=== PATIENT | male | born 1940 | race Caucasian/White ===

== ENCOUNTER 2018-05-01 20:20 | Observation (INO) | payer OTHER, MEDICARE ==
[2018-05-01] MEDS ORDERED: ENOXAPARIN 100 MG/ML SYR SQ ONE (20:43)
[2018-05-01] MEDS ORDERED: HYDROCODONE/APAP 7.5/325 MG TAB ONE (20:50)
[2018-05-01 20:58] LABS: Absolute Monocytes 0.9 K/uL (0.1-1.3); Eosinophils % 6.3 % (0-4.4); Hematocrit 44.3 % (39.6-49.0); Lymphocytes % 26.4 % (15.3-44.8); MCH 30.3 pg (27.0-35.0); MPV 8.3 fL (7.6-11.3); Monocytes % 12.2 % (3.3-12.3); RBC Red Blood Cell Count 4.93 M/uL (4.33-5.43)
[2018-05-01 21:01] LABS: Protime INR 0.96
--- NOTE | 2018-05-01 21:15 | RAD REPORT ---
EXAM DESCRIPTION: RAD - Chest Single View - 05/01/2018 9:08 pm CLINICAL HISTORY: DYSPNEA Chest pain. COMPARISON: No comparisons FINDINGS: Portable technique limits examination quality. The lungs are grossly clear. The heart is normal in size. No displaced fractures.Bilateral shoulder a rthroplasties. IMPRESSION: No acute intrathoracic process suspected.
[2018-05-01 21:22] LABS: ALT/SGPT 31 U/L (12-78); AST/SGOT 30 U/L (15-37); Albumin 3.5 g/dL (3.4-5.0); Alkaline Phosphatase 81 U/L (45-117); BUN Blood Urea Nitrogen 18 mg/dL (7-18); Bicarbonate 28 mmol/L (21-32); Bilirubin Direct < 0.1 mg/dL (0-0.2); Bilirubin Total 0.3 mg/dL (0.2-1.0); Glucose Level 163 mg/dL (74-106); Magnesium 2.4 mg/dL (1.8-2.4); NT PRO-BNP 122 pg/mL (<450); Potassium 3.8 mmol/L (3.5-5.1); Sodium Level 141 mmol/L (136-145)
--- NOTE | 2018-05-01 22:15 | EDPHYS ---
Physician Documentation [facility] Name: Nemesio Babb III Age: 77 yrs Sex: Male : 1940 Arrival Date: 05/01/2018 Time: 20:23 Bed 2 Private MD: ED Physician Dre Agee HPI: 05/01 21:52 This 77 yrs old Male presents to ER via EMS with complaints of Dizziness/ jr8 Shortness Of Breath. 21:52 The patient has shortness of breath at rest. Onset: The symptoms/episode began/occurred jr8 acutely, today. Duration: The symptoms are continuous. The patient's shortness of breath has no apparent modifying factors. Associated signs and symptoms: Pertinent positives: dizziness. Severity of symptoms: At their worst the symptoms were moderate in the emergency department the symptoms have improved. The patient has not experienced similar symptoms in the past. The patient has not recently seen a physician. Patient stated that he started to become acutely short of breath and dizzy. EMS was called and found patient to be in atrial fibrillation with RVR. Cardizem was given and he was brought to ED at that time. Patient currently in atrial fib without RVR. Feels better but still short of breath. Denies history of atrial fibrillation . Historical: - Allergies: 20:30 tramadol; rv - Home Meds: 20:38 metoprolol tartrate 25 mg Oral tab 1 tab 2 times per day [Active]; Plavix 75 mg Oral rv tab 1 tab once daily [Active]; aspirin 325 mg Oral tab 1 tab once daily [Active]; 20:39 Cymbalta 60 mg oral cpDR 1 cap once daily [Active]; rv - PMHx: 20:30 Myocardial infarction; rv - PSHx: 20:30 Angioplasty; rv 20:38 back surgery; shoulder surgery; Appendectomy; left hip surgery; rv - Immunization history:: Adult Immunizations up to date. - Social history:: Smoking status: unknown. - Ebola Screening: : Patient negative for fever greater than or equal to 101.5 degrees Fahrenheit, and additional compatible Ebola Virus Disease symptoms Patient denies exposure to infectious person Patient denies travel to an Ebola-affected area in the 21 days before illness onset. ROS: 21:52 Eyes: Negative for injury, pain, redness, and discharge, ENT: Negative for injury, jr8 pain, and discharge, Neck: Negative for injury, pain, and swelling, Cardiovascular: Negative for chest pain, palpitations, and edema, Abdomen/GI: Negative for abdominal pain, nausea, vomiting, diarrhea, and constipation, Back: Negative for injury and pain, MS/Extremity: Negative for injury and deformity, Skin: Negative for injury, rash, and discoloration. 21:52 Respiratory: Positive for shortness of breath, Negative for cough, dyspnea on exertion, sputum production, wheezing. 21:52 Neuro: Positive for dizziness, Negative for altered mental status, gait disturbance, headache, hearing loss, loss of consciousness, numbness, seizure activity, speech changes, syncope, near syncope, tingling, tinnitus, tremor, visual changes, weakness. Exam: 21:54 Eyes: Pupils equal round and reactive to light, extra-ocular motions intact. Lids and jr8 lashes normal. Conjunctiva and sclera are non-icteric and not injected. Cornea within normal limits. Periorbital areas with no swelling, redness, or edema. ENT: Nares patent. No nasal discharge, no septal abnormalities noted. Tympanic membranes are normal and external auditory canals are clear. Oropharynx with no redness, swelling, or masses, exudates, or evidence of obstruction, uvula midline. Mucous membranes moist. Neck: Trachea midline, no thyromegaly or masses palpated, and no cervical lymphadenopathy. Supple, full range of motion without nuchal rigidity, or vertebral point tenderness. No Meningismus. Respiratory: Lungs have equal breath sounds bilaterally, clear to auscultation and percussion. No rales, rhonchi or wheezes noted. No increased work of breathing, no retractions or nasal flaring. Abdomen/GI: Soft, non-tender, with normal bowel sounds. No distension or tympany. No guarding or rebound. No evidence of tenderness throughout. Back: No spinal tenderness. No costovertebral tenderness. Full range of motion. Skin: Warm, dry with normal turgor. Normal color with no rashes, no lesions, and no evidence of cellulitis. MS/ Extremity: Pulses equal, no cyanosis. Neurovascular intact. Full, normal range of motion. Neuro: Awake and alert, GCS 15, oriented to person, place, time, and situation. Cranial nerves II-XII grossly intact. Motor strength 5/5 in all extremities. Sensory grossly intact. Cerebellar exam normal. Normal gait. 21:54 Cardiovascular: Rate: normal, Rhythm: irregularly irregular, Pulses: Pulses are 2+ in right radial artery and left radial artery. Heart sounds: normal, normal S1and S2, no S3 or S4, no murmur, no rub, no gallop, Edema: is not appreciated, JVD: is not appreciated. Vital Signs: 20:31 BP 105 / 71; Pulse 78; Resp 16; Pulse Ox 97% on 2 lpm NC; rv 20:34 Weight 104.33 kg; Height 6 ft. 0 in. (182.88 cm); rv 20:52 Temp 97.7(O); lp1 21:15 BP 109 / 79; Pulse 74; Resp 14; Pulse Ox 95% on 2 lpm NC; lp1 22:15 BP 113 / 88; Pulse 66; Resp 20; Pulse Ox 95% on 2 lpm NC; lp1 20:34 Body Mass Index 31.19 (104.33 kg, 182.88 cm) rv MDM: 20:31 Patient medically screened. jr8 22:13 Data reviewed: vital signs, nurses notes, lab test result(s), EKG, radiologic studies, jr8 plain films, and as a result, I will admit patient. Data interpreted: Pulse oximetry: on room air is 95 %. Interpretation: normal. Counseling: I had a detailed discussion with the patient and/or guardian regarding: the historical points, exam findings, and any diagnostic results supporting the discharge/admit diagnosis, lab results, radiology results, the need for further work-up and treatment in the hospital. ED course: Consulted Dr. Ch with [facility]. Agrees patient needs to be observed overnight. Recommend that he stay with us for observation period and that he can f/u with them this week. Patient is ok with this. 05/01 20:32 Order name: Basic Metabolic Panel; Complete Time: 21:23 [facility] 05/01 20:32 Order name: CBC with Diff; Complete Time: 21:04 05/01 20:32 Order name: LFT's; Complete Time: 21:23 8 05/01 20:32 Order name: Magnesium; Complete Time: 21:23 [facility] 05/01 20:32 Order name: NT PRO-BNP; Complete Time: 21:23 [facility] 05/01 20:32 Order name: PT-INR; Complete Time: 21:04 05/01 20:32 Order name: Troponin (emerg Dept Use Only); Complete Time: 21:20 05/01 20:32 Order name: XRAY Chest (1 view); Complete Time: 21:20 05/01 20:32 Order name: EKG; Complete Time: 20:32 05/01 20:32 Order name: TSH; Complete Time: 21:23 05/01 20:32 Order name: T4 Free; Complete Time: 21:23 05/01 20:32 Order name: Cardiac monitoring; Complete Time: 20:33 05/01 20:32 Order name: EKG - Nurse/Tech; Complete Time: 20:33 05/01 20:32 Order name: IV Saline Lock; Complete Time: 20:33 05/01 20:32 Order name: Labs collected and sent; Complete Time: 20:33 05/01 20:32 Order name: O2 Per Protocol; Complete Time: 20:34 05/01 20:32 Order name: O2 Sat Monitoring; Complete Time: 20:34 05/01 21:30 Order name: EKG; Complete Time: 21:30 mt 05/01 21:30 Order name: EKG - Nurse/Tech; Complete Time: 21:30 mt Administered Medications: 20:46 Not Given (Physician Discretion): Lovenox 1 mg/kg Sub-Q once 20:50 Drug: Reynolds (7.5 mg-325 mg) 1 tabs Route: PO; rv 21:31 Follow up: Response: No adverse reaction; Pain is decreased bp 21:30 Drug: Lovenox 1 mg/kg Route: Sub-Q; Site: right lower abdomen; bp 22:35 Follow up: Response: No adverse reaction lp1 Disposition: 05/02 08:53 Co-signature as Attending Physician, Dre Agee MD I agree with the assessment and coni plan of care. Disposition: 05/01/18 22:15 Hospitalization ordered by Nasrin Mariano for Observation. Preliminary diagnosis is Paroxysmal atrial fibrillation - New Onset. - Bed requested for Telemetry/MedSurg (observation). - Status is Observation. lp1 - Condition is Stable. - Problem is new. - Symptoms have improved. UTI on Admission? No Signatures: Dispatcher [employer] EDMS Maggy Dominguez RN RN Dre Ricketts MD MD cha Pena, Laura RN RN lp1 Winston Funes PA PA jr8 Dawna Dumont mt, Brian, RN RN Ana Rosa Castrejon Ronaldo RN RN rv Corrections: (The following items were deleted from the chart) 05/01 21:54 21:52 Patient stated that he started to become acutely short of breath and dizzy. EMS jr8 was called and found patient to be in atrial fibrillation with RVR. Cardizem was given and he was brought to ED at that time. Patient currently in atrial fib without RVR. Feels better but still short of breath . jr8 22:27 22:15 Hospitalization Ordered by Nasrin Mariano MD for Observation. Preliminary eb diagnosis is Paroxysmal atrial fibrillation - New Onset. Bed requested for Telemetry/MedSurg (observation). Status is Observation. Condition is Stable. Problem is new. Symptoms have improved. UTI on Admission? No. jr8 22:59 22:27 05/01/2018 22:15 Hospitalization Ordered by Nasrin Mariano MD for Observation. kl Preliminary diagnosis is Paroxysmal atrial fibrillation - New Onset. Bed requested for Telemetry/MedSurg (observation). Status is Observation. Condition is Stable. Problem is new. Symptoms have improved. UTI on Admission? No. eb 23:12 22:59 05/01/2018 22:15 Hospitalization Ordered by Nasrin Mariano MD for Observation. lp1 Preliminary diagnosis is Paroxysmal atrial fibrillation - New Onset. Bed requested for Telemetry/MedSurg (observation). Status is Observation. Condition is Stable. Problem is new. Symptoms have improved. UTI on Admission? No. kl
--- NOTE | 2018-05-01 22:15 | ER ---
Nurse's Notes [facility] Name: Nemesio Babb III Age: 77 yrs Sex: Male : 1940 Arrival Date: 05/01/2018 Time: 20:23 Bed 2 Private MD: Diagnosis: Paroxysmal atrial fibrillation-New Onset Presentation: 05/01 20:26 Presenting complaint: EMS states: "while sitting and watching TV started having chest rv pains and SOB. took 324mg of ASA and Nitros before we came.". Transition of care: patient was not received from another setting of care. Onset of symptoms was May 01, 2018 at 19:30. Risk Assessment: Do you want to hurt yourself or someone else? Patient reports no desire to harm self or others. Initial Sepsis Screen: Does the patient meet any 2 criteria? No. Patient's initial sepsis screen is negative. Does the patient have a suspected source of infection? No. Patient's initial sepsis screen is negative. Care prior to arrival: None. 20:26 Method Of Arrival: EMS: [facility] rv 20:26 Acuity: YAJAIRA 3 rv Historical: - Allergies: 20:30 tramadol; rv - Home Meds: 20:38 metoprolol tartrate 25 mg Oral tab 1 tab 2 times per day [Active]; Plavix 75 mg Oral rv tab 1 tab once daily [Active]; aspirin 325 mg Oral tab 1 tab once daily [Active]; 20:39 Cymbalta 60 mg oral cpDR 1 cap once daily [Active]; rv - PMHx: 20:30 Myocardial infarction; rv - PSHx: 20:30 Angioplasty; rv 20:38 back surgery; shoulder surgery; Appendectomy; left hip surgery; rv - Immunization history:: Adult Immunizations up to date. - Social history:: Smoking status: unknown. - Ebola Screening: : Patient negative for fever greater than or equal to 101.5 degrees Fahrenheit, and additional compatible Ebola Virus Disease symptoms Patient denies exposure to infectious person Patient denies travel to an Ebola-affected area in the 21 days before illness onset. Screenin:42 Abuse screen: Denies threats or abuse. Denies injuries from another. Nutritional lp1 screening: No deficits noted. Tuberculosis screening: No symptoms or risk factors identified. Fall Risk None identified. Assessment: 20:40 General: Appears uncomfortable, Behavior is appropriate for age. Pain: Complains of lp1 pain in chest and left thumb Pain does not radiate. Pain currently is 8 out of 10 on a pain scale. Quality of pain is described as pressure, sharp, Pain began suddenly. Neuro: Level of Consciousness is awake, alert, obeys commands, Oriented to person, place, time, situation. Cardiovascular: Capillary refill < 3 seconds in bilateral fingers toes Patient's skin is warm and dry. Rhythm is sinus rhythm Chest pain is described as severe, quality is pressure, is located in right anterior chest wall. Respiratory: Reports shortness of breath at rest Airway is patent Trachea midline Respiratory effort is even, Respiratory pattern is regular, Breath sounds are clear bilaterally. the patient has moderate shortness of breath. GI: No signs and/or symptoms were reported involving the gastrointestinal system. : No signs and/or symptoms were reported regarding the genitourinary system. EENT: No signs and/or symptoms were reported regarding the EENT system. Derm: Skin is pink, warm \\T\\ dry. Musculoskeletal: Circulation, motion, and sensation intact. 21:14 Reassessment: Patient appears in no apparent distress at this time. Patient is alert, lp1 oriented x 3, equal unlabored respirations, skin warm/dry/pink. Family at bedside. 22:15 Reassessment: Patient appears in no apparent distress at this time. Patient is alert, lp1 oriented x 3, equal unlabored respirations, skin warm/dry/pink. Patient aware of pending admission, family at bedside Patient denies pain at this time. Patient states feeling better. 22:37 Reassessment: Dr. Downey at bedside. lp1 Vital Signs: 20:31 BP 105 / 71; Pulse 78; Resp 16; Pulse Ox 97% on 2 lpm NC; rv 20:34 Weight 104.33 kg; Height 6 ft. 0 in. (182.88 cm); rv 20:52 Temp 97.7(O); lp1 21:15 BP 109 / 79; Pulse 74; Resp 14; Pulse Ox 95% on 2 lpm NC; lp1 22:15 BP 113 / 88; Pulse 66; Resp 20; Pulse Ox 95% on 2 lpm NC; lp1 20:34 Body Mass Index 31.19 (104.33 kg, 182.88 cm) rv ED Course: 20:20 No provider procedures requiring assistance completed. Maintain EMS IV. Dressing lp1 intact. Good blood return noted. Site clean \\T\\ dry. Gauge \\T\\ site: 18g to R AC. 20:23 Patient arrived in ED. bp 20:25 EKG done, by ED staff, reviewed by Dre Agee MD. mt 20:28 Triage completed. rv 20:31 Winston Funes PA is PHCP. jr8 20:31 Dre Agee MD is Attending Physician. jr8 20:39 Porsche Tee, CRISTAL is Primary Nurse. lp1 20:42 Patient has correct armband on for positive identification. Placed in gown. Bed in low lp1 position. Call light in reach. educational coordinator on. Pulse ox on. NIBP on. 20:42 Arm band placed on left wrist. lp1 20:43 Patient maintains SpO2 saturation greater than 95% on room air. lp1 21:08 XRAY Chest (1 view) In Process Unspecified. EDMS 22:14 Nasrin Mariano MD is Hospitalizing Provider. jr8 22:34 Patient admitted, IV remains in place. lp1 Administered Medications: 20:46 Not Given (Physician Discretion): Lovenox 1 mg/kg Sub-Q once jr8 20:50 Drug: Roy (7.5 mg-325 mg) 1 tabs Route: PO; rv 21:31 Follow up: Response: No adverse reaction; Pain is decreased bp 21:30 Drug: Lovenox 1 mg/kg Route: Sub-Q; Site: right lower abdomen; bp 22:35 Follow up: Response: No adverse reaction lp1 Outcome: 22:15 Decision to Hospitalize by Provider. jr8 22:34 Condition: stable lp1 22:34 Instructed on the need for admit. 23:09 Admitted to Tele via wheelchair, room , with oxygen, with chart. lp1 23:12 Admitted to Tele via wheelchair, room 427, with chart, Report called to Sarai Patiño RN 23:12 Patient left the ED. lp1 Signatures: Dispatcher [employer] EDMS Porsche Tee, RN RN [email or web address] Winston Funes PA PA [address] Dany Church RN RN Ray Tan RN RN rv Corrections: (The following items were deleted from the chart) 22:34 20:20 Maintain EMS IV. Dressing intact. Good blood return noted. Site clean \\T\\ dry. lp1 Gauge \\T\\ site: 18g to R AC. Patient admitted, IV remains in place. lp1
--- NOTE | 2018-05-01 22:59 | P.HP ---
Certification for Inpatient Patient admitted to: Observation With expected LOS: <2 Midnights Practitioner: I am a practitioner with admitting privileges, knowledge of patient current condition, hospital course, and medical plan of care. Services: Services provided to patient in accordance with Admission requirements found in Title 42 Section 412.3 of the Code of Federal Regulations Patient History Date of Service: 05/01/18 Reason for admission: new onset A.Fib History of Present Illness: Mr Babb is a 77 years old male with history of HTN, CAD, who was watching tv this afternoon when suddenly start feeling lightheadedness, dizziness and SOB. He got concern because his previous [place] presented with similar symptoms. He took his blood pressure and it was 170's/120's. He noticed also that his HR was elevated, about 120-130's. He took nitro spry but did not improved his symptoms. He called then 911. EMS found the patient on A.Fib, subsequently they gave him Cardizem and transferred the patient to the hospital. In ED EKG was still on A.Fib at 97 bpm. Finally the patient converted back to SR while was still in ER. It is important to mention that the patient did not take Metoprolol yesterday (2 doses). 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 moist/pink, EOMI, Sclerae nonicteric Neck: Supple, 2+ carotid pulse no bruit, No LAD, Without JVD or thyroid abnormality Respiratory: Clear to auscultation bilaterally, Normal air movement Cardiovascular: Regular rate/rhythm, Normal S1 S2 Gastrointestinal: Normal bowel sounds, No tenderness Musculoskeletal: No tenderness Integumentary: No rashes Neurological: Normal speech, Normal strength at 5/5 x4 extr, Normal tone, Normal affect Lymphatics: No axilla or inguinal lymphadenopathy - Studies Laboratory Data (last 24 hrs) 05/01/18 20:20: PT 11.3, INR 0.96 05/01/18 20:20: WBC 7.4, Hgb 14.9, Hct 44.3, Plt Count 176 05/01/18 20:20: Sodium 141, Potassium 3.8, BUN 18, Creatinine 0.90, Glucose 163 H, Magnesium 2.4, Total Bilirubin 0.3, AST 30, ALT 31, Alkaline Phosphatase 81 Assessment and Plan - Problems (Diagnosis) (1) HTN (hypertension) Current Visit: Yes Status: Acute Qualifiers: Hypertension type: essential hypertension Qualified Code(s): I10 - Essential (primary) hypertension (2) New onset atrial fibrillation Current Visit: Yes Status: Acute (3) CAD (coronary artery disease) Current Visit: Yes Status: Acute Qualifiers: Coronary Disease-Associated Artery/Lesion type: [place] artery [place] vs. transplanted heart: [place] heart Associated angina: without angina Qualified Code(s): I25.10 - Atherosclerotic heart disease of [place] coronary artery without angina pectoris (4) Hypothyroidism Current Visit: Yes Status: Acute Qualifiers: Hypothyroidism type: unspecified Qualified Code(s): E03.9 - Hypothyroidism , unspecified - Plan The patient will be admitted to the hospital due to new onset atrial fibrillation. Currently on normal SR, after receive IV Cardizem in the ambulance on the way to ED. Initial trop I is negative. Will resume Metoprolol, order continue cardiac monitoring, start Eliquis, serial trop I and EKG, ECHO and Cardiology team evaluation. - Advance Directives Does patient have a Living Will: Yes Does patient have a Durable POA for Healthcare: Yes - Code Status/Comfort Care Code Status Assessed: Yes Code Status: Full Code
[2018-05-01] MEDS ORDERED: ONDANSETRON 4 MG/2 ML VIAL IV PRN (23:25)
[2018-05-01] MEDS ORDERED: ACETAMINOPHEN 500 MG TAB PO PRN (23:25)
[2018-05-01] MEDS ORDERED: POTASSIUM 25 MEQ EFFERV TAB PO ONE (23:59)
[2018-05-02] MEDS ORDERED: ESZOPICLONE 1 MG TAB PO PRN (01:22)
[2018-05-02 02:04] VITALS: BMI 4491.3
[2018-05-02 02:30] LABS: Urine Appearance CLOUDY; Urine Bilirubin NEGATIVE (NEG); Urine Blood NEGATIVE (NEG); Urine Color YELLOW; Urine Glucose NEGATIVE (NEG); Urine Protein NEGATIVE (NEG); Urine Urobilinogen 0.2 mg/dL (0.2-1.0)
[2018-05-02 03:01] LABS: Urine Microscopic Reflex ORDER UMIC
[2018-05-02 03:21] LABS: Urine Bacteria <20 /HPF (NONE SEEN); Urine RBC NONE SEEN /HPF (NONE SEEN)
[2018-05-02 03:22] LABS: Urine Culture Reflex Order NOT NEEDED; Urine Sperm PRESENT (NONE SEEN)
[2018-05-02 04:53] LABS: BUN Blood Urea Nitrogen 19 mg/dL (7-18); Bicarbonate 30 mmol/L (21-32); Glucose Level 101 mg/dL (74-106); Potassium 4.4 mmol/L (3.5-5.1); Sodium Level 142 mmol/L (136-145)
[2018-05-02 08:14] VITALS: BP 149/86; TEMP 97
[2018-05-02] MEDS ORDERED: METOPROLOL TAR 25 MG TAB PO SCH (09:00)
[2018-05-02] MEDS ORDERED: ASPIRIN 325 MG TAB PO SCH (09:00)
[2018-05-02] MEDS ORDERED: APIXABAN 5 MG TABLET PO SCH (09:00)
[2018-05-02] MEDS ORDERED: CLOPIDOGREL 75 MG TABLET PO SCH (09:00)
--- NOTE | 2018-05-02 09:00 | EKG ---
Test Date: 2018-05-01 Test Time: 21:26:33 [place] [employer] Professor: MARIO MEASUREMENT RESULTS: Intervals: Rate: 72 NE: 194 QRSD: 90 QT: 372 QTc: 407 [place]: P: 58 NE: 194 QRS: 3 T: 50 INTERPRETIVE STATEMENTS: Sinus rhythm with occasional premature ventricular complexes Otherwise normal ECG Compared to ECG 05/01/2018 20:21:23 Ventricular premature complex(es) now present Atrial fibrillation no longer present Electronically Signed On 05-02-18 09:00:19 CDT by Chuy Munguia
--- NOTE | 2018-05-02 09:00 | EKG ---
Test Date: 2018-05-01 Test Time: 20:21:23 Speech Language Assistant: MARIO MEASUREMENT RESULTS: Intervals: Rate: 97 [place]: QRSD: 102 QT: 350 QTc: 444 [place]: P: [place]: QRS: 7 T: 49 INTERPRETIVE STATEMENTS: Atrial fibrillation Abnormal ECG No previous ECG available for comparison Electronically Signed On 05-02-18 09:00:25 CDT by Chuy Munguia
[2018-05-02 10:44] VITALS: O2SAT 96
--- NOTE | 2018-05-02 11:56 | ECHO ---
HEIGHT: 0 ft 6 in WEIGHT: 230 lb 0 oz DATE OF STUDY: 05/02/[address]: Nasrin Downey MD 2-DIMENSIONAL: YES M.MODE: YES DOPPLER: YES COLOR FLOW: YES TDS: PORTABLE: DEFINITY: BUBBLE STUDY: DIAGNOSIS: ATRIAL FIBRILLATION CARDIAC HISTORY: CATHERIZATION: NO SURGERY: NO PROSTHETIC VALVE: NO PACEMAKER: NO MEASUREMENTS (cm) DIASTOLIC (NORMALS) SYSTOLIC (NORMALS) IVSd 1.4 (0.6-1.2) LA Diam 4.4 (1.9-4.0) LVEF 58% LVIDd 4.2 (3.5-5.7) LVIDs 2.9 (2.0-3.5) %FS 30% LVPWd 1.3 (0.6-1.2) Ao Diam 3.3 (2.0-3.7) 2 DIMENSIONAL ASSESSMENT: RIGHT ATRIUM: NORMAL LEFT ATRIUM: DILATED RIGHT VENTRICLE: NORMAL LEFT VENTRICLE: LEFT VENTRICULAR HYPERTROPHY TRICUSPID VALVE: NORMAL MITRAL VALVE: NORMAL PULMONIC VALVE: NORMAL AORTIC VALVE: NORMAL PERICARDIAL EFFUSION: NONE AORTIC ROOT: NORMAL LEFT VENTRICULAR WALL MOTION: NORMAL DOPPLER/COLOR FLOW: MILD AORTIC REGURGITATION. IMPAIRED LEFT VENTRICULAR RELAXATION. COMMENTS: NORMAL LEFT VENTRICULAR EJECTION FRACTION. DILATED LEFT ATRIUM. MILD AORTIC REGURGITATION. IMPAIRED LEFT VENTRICULAR RELAXATION. TECHNOLOGIST: RM CISSE
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
--- NOTE | 2018-05-02 14:42 | P.DS ---
Admission Date: 05/01/18 Discharge Date: 05/02/18 Disposition: ROUTINE DISCHARGE Discharge Condition: FAIR Reason for Admission: new onset A.Fib Consultations: Cardiology Dr. Munguia - Problems (1) CAD (coronary artery disease) Status: Acute Qualifiers: Coronary Disease-Associated Artery/Lesion type: [place] artery [place] vs. transplanted heart: [place] heart Associated angina: without angina Qualified Code(s): I25.10 - Atherosclerotic heart disease of [place] coronary artery without angina pectoris (2) HTN (hypertension) Status: Acute Qualifiers: Hypertension type: essential hypertension Qualified Code(s): I10 - Essential (primary) hypertension (3) Hypothyroidism Status: Acute Qualifiers: Hypothyroidism type: unspecified Qualified Code(s): E03.9 - Hypothyroidism , unspecified (4) New onset atrial fibrillation Status: Acute Brief History of Present Illness: From H&P Mr Babb is a 77 years old male with history of HTN, CAD, who was watching tv this afternoon when suddenly start feeling lightheadedness, dizziness and SOB. He got concern because his previous CO presented with similar symptoms. He took his blood pressure and it was 170's/120's. He noticed also that his HR was elevated, about 120-130's. He took nitro spry but did not improved his symptoms. He called then 911. EMS found the patient on A.Fib, subsequently they gave him Cardizem and transferred the patient to the hospital. In ED EKG was still on A.Fib at 97 bpm. Finally the patient converted back to SR while was still in ER. It is important to mention that the patient did not take Metoprolol yesterday (2 doses). Hospital Course: Patient is a 77-year-old male who comes into the hospital with atrial fibrillation with RVR he had forgotten to take his beta-rosa as he was away on a trip. Patient was controlled with metoprolol his rate improved. Echocardiogram was done which showed EF of 58%. He was seen by cardiology Dr. Munguia. Patient was started on anticoagulation with within your oral anticoagulants. He tolerated the medication well. Patient was taken off of his aspirin and Plavix. Patient was recommended to follow up with his primary music engineer in [place]. Patient was incidentally found to have elevated TSH. Patient was not initially started on thyroid medication due to atrial fibrillation. Once patient's heart rate is better controlled he will need to be started on Synthroid by his primary care physician at a low dose in order not exacerbate further atrial fibrillation with RVR. Patient will need repeat TSH level in 6 to 8 weeks. Patient denied any chest pain or shortness of breath he was then cleared for discharge from cardiology standpoint and was sent home in a stable condition Vital Signs/Physical Exam: Temp Pulse Resp BP Pulse Ox 97.0 F 70 18 149/86 H 96 05/02/18 08:00 05/02/18 08:45 05/02/18 08:00 05/02/18 08:45 05/02/18 08:00 General: Alert, In no apparent distress, Oriented x3, Obese HEENT: Atraumatic, PERRLA, EOMI Neck: Supple, JVD not distended Respiratory: Clear to auscultation bilaterally, Normal air movement Cardiovascular: No edema, Normal pulses, Regular rate/rhythm, Normal S1 S2 Gastrointestinal: Normal bowel sounds, Soft and benign, Non-distended, No tenderness Musculoskeletal: No clubbing, No tenderness Integumentary: No rashes, No erythema Neurological: Normal speech, Normal strength at 5/5 x4 extr, Normal tone, Normal affect Laboratory Data at Discharge: WBC 7.4 K/uL (4.3-10.9) 05/01/18 20:20 Hgb 14.9 g/dL (13.6-17.9) 05/01/18 20:20 Hct 44.3 % (39.6-49.0) 05/01/18 20:20 Plt Count 176 K/uL (152-406) 05/01/18 20:20 PT 11.3 SECONDS (9.5-12.5) 05/01/18 20:20 INR 0.96 05/01/18 20:20 Sodium 142 mmol/L (136-145) 05/02/18 04:14 Potassium 4.4 mmol/L (3.5-5.1) 05/02/18 04:14 BUN 19 mg/dL (7-18) H 05/02/18 04:14 Creatinine 0.80 mg/dL (0.55-1.3) 05/02/18 04:14 Glucose 101 mg/dL (74-106) 05/02/18 04:14 Magnesium 2.4 mg/dL (1.8-2.4) 05/01/18 20:20 Total Bilirubin 0.3 mg/dL (0.2-1.0) 05/01/18 20:20 AST 30 U/L (15-37) 05/01/18 20:20 ALT 31 U/L (12-78) 05/01/18 20:20 Alkaline Phosphatase 81 U/L (45-117) 05/01/18 20:20 Troponin I 0.03 ng/mL (0.0-0.045) 05/02/18 07:35 Home Medications: Duloxetine HCl 1 tab PO DAILY 12/11/14 Metoprolol Tartrate [Lopressor*] 25 mg PO BID 12/11/14 Eszopiclone [Lunesta*] 3 mg PO BEDTIME PRN 12/12/14 Apixaban [Eliquis] 5 mg PO BID #60 tablet 05/02/18 New Medications: Apixaban [Eliquis] 5 mg PO BID #60 tablet Patient Discharge Instructions: f/up w PCP in 2-3 days. f/up w primary music engineer in 1-2 weeks. Return to ER for worsening condition Diet: AHA Activity: Ad kassandra
[2018-05-03] MEDS ORDERED: DULOXETINE 30 MG CAP PO SCH (09:00)
[2018-05-03] MEDS ORDERED: HOME MED 1 EA UNK (Duloxetine Hcl [Duloxetine Hcl] 1 TAB) PO SCH (09:00)
== END 2018-05-02 10:34 | disposition home or self-care (01) ==
LOC: ER 20:20 → ERHOLD 22:39 → 4TH 23:07
PROVIDERS: ADMIT Internal Medicine; ATTEND Internal Medicine
DX: I48.91 Unspecified atrial fibrillation (principal); I25.10 Atherosclerotic heart disease of native coronary artery without angina pectoris; I10 Essential (primary) hypertension; E03.9 Hypothyroidism, unspecified
CPT/HCPCS: 36415; 71045; 80048 ×2; 80076; 83735; 83880; 84439; 84443; 84484 ×3; 85025; 85610; 93005 ×2; 93306; 96372; 99285; G0378 ×2; J1650; 81003; 81015